=== PATIENT | female | born 1950 | race Caucasian/White ===

== ENCOUNTER 2017-09-27 12:05 | Observation (INO) ==
[2017-09-27] MEDS ORDERED: Aspirin 81 MG TAB.CHEW PO ONE (12:27)
--- NOTE | 2017-09-27 12:31 | Emergency Department Note ---
Disposition Clinical Impression: Chest pain Qualifiers: Chest pain type: unspecified Qualified Code(s): R07.9 - Chest pain, unspecified Disposition: Admitted As Inpatient Condition: Fair Referrals: Haeseb Franco MD [Primary Care Provider] - Forms: ED Satisfaction Letter Time of Disposition: 14:34 Chest Pain HPI - General Chief Complaint: ED Chest Pain Stated Complaint: Chest Pressure Time Seen by Provider: 09/27/17 12:21 Source: patient Mode of arrival: ambulatory Limitations: no limitations Vital Signs Reviewed: Yes Nursing Notes Reviewed: Yes - History of Present Illness HPI Narrative: 67-year-old female who woke up this morning with chest pain across her chest lasted for about 15-20 minutes then resolved. Patient has no previous history of heart disease. Says no recent cardiac workup. Include family history and high cholesterol. 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 Onset: during rest Pain Location: substernal, left chest Severity: mild Severity scale (1-10): 2 Quality: tightness, aching Pain Radiation: none Improves with: nothing Worsens with: nothing Context: recent illness Associated symptoms: Reports: nausea Treatments prior to arrival chest pain: none - Related Data Home Medications Medication Instructions Recorded Confirmed Diclofenac Sodium [Voltaren] 1 appl TP QID PRN 09/28/16 09/28/16 Dicyclomine HCl [Bentyl] 20 mg PO DAILY PRN 09/28/16 09/28/16 Pantoprazole Sodium [Protonix] 20 mg PO DAILY 09/28/16 09/28/16 clonazePAM [Klonopin] 0.5 mg PO HS PRN 09/28/16 09/28/16 Allergies Allergy/AdvReac Type Severity Reaction Status Date / Time acetaminophen [From Percocet] Allergy Vomiting Verified 09/27/17 12:10 azithromycin Allergy Rash Verified 09/27/17 12:10 [From Zithromax Z-Chilo] cefdinir [From Omnicef] Allergy Hives Verified 09/27/17 12:10 hydrocodone [From Vicodin] Allergy Vomiting Verified 09/27/17 12:10 Hydromorphone [From Dilaudid] Allergy Vomiting Verified 09/27/17 12:10 Oxycodone [From Percocet] Allergy Vomiting Verified 09/27/17 12:10 promethazine [From Phenergan] Allergy Vomiting Verified 09/27/17 12:10 Owjrdul-Wku-Znk Reductase Allergy Muscle Pain Verified 09/27/17 12:10 Inhibitor [Statins] Sulfa (Sulfonamide Allergy Hives Verified 09/27/17 12:10 Antibiotics) All systems ED: reviewed and negative except as stated. Constitutional: Denies: fever, chills, weakness, weight change Eyes: Denies: eye pain, eye discharge, vision change ENT ED: Denies: ear pain, throat pain, dental pain, hearing loss, epistaxis, congestion, dysphagia Cardiovascular: Reports: chest pain. Denies: palpitations, dyspnea on exertion , edema, syncope Respiratory: Denies: cough, dyspnea, wheezes, hemoptysis, stridor Gastrointestinal: Denies: abdominal pain, nausea, vomiting, diarrhea, constipation, hematemesis, melena, hematochezia Genitourinary: Denies: dysuria, frequency, hematuria, discharge Musculoskeletal: Denies: back pain, neck pain, arthralgia, myalgia Integumentary: Denies: rash, abrasion, lesions Neurological: Denies: headache, weakness, numbness, paresthesias, confusion, abnormal gait, vertigo Psychiatric: Denies: anxiety, depression, suicidal thoughts, homicidal thoughts , auditory hallucinations, visual hallucinations Endocrine: Denies: fatigue Hematological/Lymphatic: Denies: easy bleeding, easy bruising Allergic/Immunologic: Denies: facial swelling, urticaria Chest Pain PMH - Past Medical History Medical history: Reports: GERD, hyperlipidemia, other Surgical history: Reports: orthopedic, other Psychiatric history: Reports: no psych history 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 - Social History Smoking Status: Never smoker Alcohol use: Reports: none Drug use: Reports: none Physical Exam - General Limitations: no limitations General appearance: alert, in no apparent distress - Head Head exam: atraumatic, normocephalic, normal inspection - Eye Eye exam: Present: normal appearance, PERRL, EOMI - ENT ENT exam: normal exam, normal oropharynx, mucous membranes moist - Neck Neck exam: Present: normal inspection, full ROM, trachea midline - Chest Chest inspection: Present: normal inspection, symmetric chest wall rise - Respiratory Respiratory exam: Present: normal lung sounds bilaterally - Cardiovascular Cardiovascular exam: Present: regular rate - Abdominal Exam Abdominal exam: Present: soft, Non-Tender. Absent: tenderness, distention, guarding, rebound, rigidity - Extremities Exam Extremities exam: Present: normal inspection, full ROM. Absent: tenderness, pedal edema - Expanded Lower Extremity Exam Neurovascular/Tendon exam: Absent: motor deficit, sensory deficit, tendon deficit Gait: observed and normal - Back Exam Back exam: Present: normal inspection, full ROM. Absent: tenderness - Neurological Exam Neurological exam: Present: alert, oriented X3 - Psychiatric Psychiatric exam: Present: normal affect, normal mood - Skin Skin exam: Present: warm, dry, intact, normal color Course - Reevaluation(s) Reevaluation #1: 67-year-old with multiple risk factors come in complaining of chest pain. Workup here is negative patient's had no recent workup will admit. Time: 14:33 - Consultations Consultation #1: Discussed with Dr. Juárez, it. Time: 14:34 Vital Signs Temperature 97.4 F L 09/27/17 12:06 Pulse Rate 69 09/27/17 12:06 Respiratory Rate 16 09/27/17 12:06 Blood Pressure 170/85 09/27/17 12:06 O2 Sat by Pulse Oximetry 99 09/27/17 12:06 Temperature 97.4 F L 09/27/17 12:06 Pulse Rate 56 09/27/17 13:50 Respiratory Rate 18 09/27/17 13:50 Blood Pressure 163/80 09/27/17 13:50 O2 Sat by Pulse Oximetry 96 09/27/17 13:50 Oxygen Delivery Oxygen Delivery Room Air Chest Pain - Lab Data Result diagrams: 09/27/17 12:37 09/27/17 12:37 Lab Results 09/27/17 09/27/17 09/27/17 Range/Units 12:37 12:37 12:37 WBC 6.8 (4.3-11.1) K/mcL RBC 4.92 (3.82-4.97) M/mcL Hgb 13.9 (11.5-15.4) g/dL Hct 43.1 (35.3-44.9) % MCV 87.6 (83.0-100.0) fL MCH 28.3 (28.0-33.3) pg MCHC 32.3 (31.6-35.5) g/dL RDW 13.5 (11.5-14.5) % Plt Count 325 (140-400) K/mcL MPV 10.9 (9.4-12.4) fL Immature Gran % 0.9 (0-4) % Seg Neutrophils % 54.4 % Lymphocytes % 29.4 % Monocytes % 12.6 % Eosinophils % 1.2 % Basophils % 1.5 % Neutrophils # 3.7 (1.6-8.9) K/mcL Lymphocytes # 2.0 (0.6-4.6) K/mcL Monocytes # 0.9 (0.0-1.3) K/mcL Eosinophils # 0.1 (0.0-0.6) K/mcL Basophils # 0.1 (0.0-0.2) K/mcL PT 11.2 (9.4-12.1) Seconds INR 1.0 APTT 28.8 (26.0-36.0) Seconds Sodium 141 (136-145) mEq/L Potassium 4.2 (3.5-4.5) mEq/L Chloride 105 (98-109) mEq/L Carbon Dioxide 27 (19-29) mEq/L BUN 15 (7-20) mg/dL Creatinine 0.97 (0.57-1.11) mg/dL Est GFR ( Amer) > 60 (> 60) Est GFR (Non-Af Amer) 57 L (> 60) BUN/Creatinine Ratio 15 (6-26) Glucose 94 (70-99) mg/dL Calculated Osmolality 293 (280-300) Calcium 10.2 (8.6-10.8) mg/dL Troponin I (0-0.03) ng/mL 09/27/17 Range/Units 12:37 WBC (4.3-11.1) K/mcL RBC (3.82-4.97) M/mcL Hgb (11.5-15.4) g/dL Hct (35.3-44.9) % MCV (83.0-100.0) fL MCH (28.0-33.3) pg MCHC (31.6-35.5) g/dL RDW (11.5-14.5) % Plt Count (140-400) K/mcL MPV (9.4-12.4) fL Immature Gran % (0-4) % Seg Neutrophils % % Lymphocytes % % Monocytes % % Eosinophils % % Basophils % % Neutrophils # (1.6-8.9) K/mcL Lymphocytes # (0.6-4.6) K/mcL Monocytes # (0.0-1.3) K/mcL Eosinophils # (0.0-0.6) K/mcL Basophils # (0.0-0.2) K/mcL PT (9.4-12.1) Seconds INR APTT (26.0-36.0) Seconds Sodium (136-145) mEq/L Potassium (3.5-4.5) mEq/L Chloride (98-109) mEq/L Carbon Dioxide (19-29) mEq/L BUN (7-20) mg/dL Creatinine (0.57-1.11) mg/dL Est GFR ( Amer) (> 60) Est GFR (Non-Af Amer) (> 60) BUN/Creatinine Ratio (6-26) Glucose (70-99) mg/dL Calculated Osmolality (280-300) Calcium (8.6-10.8) mg/dL Troponin I 0.00 (0-0.03) ng/mL - EKG Data EKG attestation: Yes I reviewed and interpreted this EKG. EKG shows normal: sinus rhythm Rate: normal Rhythm: NSR [place]/QRS: left axis deviation Interpretation: no acute changes Heart Score - Score History: Moderately Suspicious EKG: Non Specific repolarisation Disturbance Age: Greater than 65 Risk Factors: 1-2 risk factors Troponin: Less than normal limit HEART Score Total: 5
[2017-09-27 12:50] LABS: Basophils # 0.1 K/mcL (0.0-0.2); Basophils % 1.5 %; Eosinophils # 0.1 K/mcL (0.0-0.6); Eosinophils % 1.2 %; Hematocrit 43.1 % (35.3-44.9); Hemoglobin 13.9 g/dL (11.5-15.4); Immature Granulocytes % 0.9 % (0-4); Lymphocytes % 29.4 %; Mean Corpuscular HGB Conc 32.3 g/dL (31.6-35.5); Mean Corpuscular Hemoglobin 28.3 pg (28.0-33.3); Mean Corpuscular Volume 87.6 fL (83.0-100.0); Mean Platelet Volume 10.9 fL (9.4-12.4); Monocytes # 0.9 K/mcL (0.0-1.3); Monocytes % 12.6 %; Neutrophils # 3.7 K/mcL (1.6-8.9); Platelet Count 325 K/mcL (140-400); Red Blood Count 4.92 M/mcL (3.82-4.97); Red Cell Distribution Width 13.5 % (11.5-14.5); Segmented Neutrophils % 54.4 %
[2017-09-27 12:59] LABS: Prothrombin Time 11.2 Seconds (9.4-12.1)
[2017-09-27 13:01] LABS: BUN/Creatinine Ratio 15 (6-26); Blood Urea Nitrogen 15 mg/dL (7-20); Calcium 10.2 mg/dL (8.6-10.8); Carbon Dioxide 27 mEq/L (19-29); Chloride 105 mEq/L (98-109); Glucose 94 mg/dL (70-99); Osmolality,Calculated 293 (280-300); Potassium 4.2 mEq/L (3.5-4.5); Sodium 141 mEq/L (136-145); eGFR For African Americans > 60 (> 60); eGFR For Non-African Americans 57 (> 60)
[2017-09-27 13:02] LABS: Activated Partial Thrombo Time 28.8 Seconds (26.0-36.0)
[2017-09-27] MEDS ORDERED: *HR* Enoxaparin 80 MG/0.8 ML SYRINGE SQ STA (14:55)
[2017-09-27] MEDS ORDERED: clonazePAM 0.5 MG TABLET PO PRN (16:17)
--- NOTE | 2017-09-27 16:21 | Event Note ---
Date of Encounter: 09/27/17 Time of Encounter: 16:19 10 point review of systems is negative except for HPI
--- NOTE | 2017-09-27 16:28 | Internal Med History&Physical ---
Date of Encounter: 09/27/17 Time of Encounter: 16:22 Assessment and Plan (1) Unstable angina Current visit: Yes Status: Acute Patient presents with unstable angina. Initial troponin normal. EKG showing subtlle ST-T wave changes changes in V1 and V2. I will start the patient on FULL DOSE LOVENOX. She denies any active chest pain. Rules of the patient and aspirin functional blockers for hypertension no room for beta blockers. Lisinopril for hypertension. Internal Medicine - H&P: HPI Chief complaint: CHEST PAIN History of present illness: Ms. Alcala is a 67 year old female patient presents to the emergency room today with the main complaint of chest pain. Patient was awaken from sleep at 6 AM with retrosternal chest pain radiating to the right arm lasting for approximately 2 minutes. Pain was not related to exertion. There was no associated shortness of breath sweating nausea vomiting. Pain is not regarded again. She denies any chest pain during my interview. No prior similar problems. Has not had any prior cardiac workup. Past Med Surg Social Fam HX - Past Medical History Medical history: GERD, hyperlipidemia, other Psychiatric history: no psych history - Past Surgical History Surgical History: cataract - Social History Smoking Status: Never smoker Smokeless Tobacco Status: No Alcohol use: none Drug use: none - Family History Father Living Status: Cause of : ID Hx Family Cardiac Disorders: Yes (ID) Brother Living Status: Still Living Hx Family Cardiac Disorders: Yes (AAA) Internal Medicine - H&P: Meds Dicyclomine HCl [Bentyl] 20 mg PO DAILY PRN 09/28/16 [History] Pantoprazole Sodium [Protonix] 20 mg PO DAILY 09/28/16 [History] clonazePAM [Klonopin] 0.5 mg PO HS PRN 09/28/16 [History] Aspirin Enteric Coated [Aspirin EC] 81 mg PO DAILY 09/27/17 [History] Cholecalciferol (Vitamin D3) [Vitamin D3] 5,000 unit PO DAILY 09/27/17 [History] Fenofibrate Nanocrystallized [Triglide] 160 mg PO DAILY 09/27/17 [History] 3 Allergy/AdvReac Type Severity Reaction Status Date / Time acetaminophen [From Percocet] Allergy Vomiting Verified 09/27/17 12:10 azithromycin Allergy Rash Verified 09/27/17 12:10 [From Zithromax Z-Chilo] cefdinir [From Omnicef] Allergy Hives Verified 09/27/17 12:10 hydrocodone [From Vicodin] Allergy Vomiting Verified 09/27/17 12:10 Hydromorphone [From Dilaudid] Allergy Vomiting Verified 09/27/17 12:10 Oxycodone [From Percocet] Allergy Vomiting Verified 09/27/17 12:10 promethazine [From Phenergan] Allergy Vomiting Verified 09/27/17 12:10 Upzpvvr-Kpp-Eqy Reductase Allergy Muscle Pain Verified 09/27/17 12:10 Inhibitor [Statins] Sulfa (Sulfonamide Allergy Hives Verified 09/27/17 12:10 Antibiotics) All Systems PM: A 10-system review of systems was performed and is negative for pertinent findings except as documented above in the HPI. Review of systems: 10 point review of systems is negative except for HPI - Constitutional Vitals: Temp Pulse Resp BP Pulse Ox 97.8 F 73 17 141/76 98 09/27/17 15:56 09/27/17 15:56 09/27/17 15:56 09/27/17 15:56 09/27/17 15:56 Exam: Gen.: patient is alert oriented times 3 cardiac: normal S1 S2 no additional sounds or murmurs chest: no active wheezing or bronchial breathing abdomen soft nontender nondistended normal bowel sounds lower extremity no swelling. Neuro: no new focal deficits Internal Med - H&P Results - Labs CBC & Chem 7: 09/27/17 12:37 09/27/17 12:37
[2017-09-27] MEDS: amLODIPine 5 MG TABLET PO SCH (17:35)
--- NOTE | 2017-09-27 17:40 | Electrocardiograph Report ---
[facility] Test Date: 2017-09-27 Pat Name: Georgia Alcala Department: 103 Room: 3B34 Gender: F Director Of Event Management: : 1950 Requested By: Berenice See Order Number: [id number] Reading MD: Eagle Coburn MD Measurements Intervals [place] Rate: 63 P: 45 [place]: 162 QRS: -21 QRSD: 80 T: 22 QT: 385 QTc: 392 Interpretive Statements SINUS RHYTHM BORDERLINE LEFT AXIS DEVIATION [QRS AXIS < -20] Electronically Signed On 09-27-2017 17:39:33 EDT by Eagle Coburn MD
[2017-09-27] MEDS: Acetaminophen 325 MG TABLET PO PRN (21:26)
[2017-09-28] MEDS: *HR* Enoxaparin 30 MG/0.3 ML SYRINGE SQ SCH ×2 (02:50→02:53)
[2017-09-28] MEDS: Acetaminophen 325 MG TABLET PO PRN ×2 (04:07→10:34)
[2017-09-28 04:50] LABS: Basophils # 0.1 K/mcL (0.0-0.2); Basophils % 1.3 %; Eosinophils # 0.1 K/mcL (0.0-0.6); Eosinophils % 1.6 %; Hematocrit 40.6 % (35.3-44.9); Hemoglobin 13.3 g/dL (11.5-15.4); Immature Granulocytes % 0.8 % (0-4); Lymphocytes # 2.5 K/mcL (0.6-4.6); Lymphocytes % 41.1 %; Mean Corpuscular HGB Conc 32.8 g/dL (31.6-35.5); Mean Corpuscular Hemoglobin 28.7 pg (28.0-33.3); Mean Corpuscular Volume 87.5 fL (83.0-100.0); Mean Platelet Volume 11.2 fL (9.4-12.4); Monocytes # 0.8 K/mcL (0.0-1.3); Monocytes % 12.4 %; Neutrophils # 2.6 K/mcL (1.6-8.9); Platelet Count 288 K/mcL (140-400); Red Blood Count 4.64 M/mcL (3.82-4.97); Red Cell Distribution Width 13.8 % (11.5-14.5); Segmented Neutrophils % 42.8 %
[2017-09-28 05:19] LABS: BUN/Creatinine Ratio 15 (6-26); Blood Urea Nitrogen 16 mg/dL (7-20); Calcium 10.1 mg/dL (8.6-10.8); Carbon Dioxide 27 mEq/L (19-29); Chloride 104 mEq/L (98-109); Glucose 92 mg/dL (70-99); Magnesium 2.3 mg/dL (1.6-2.6); Osmolality,Calculated 295 (280-300); Potassium 4.2 mEq/L (3.5-4.5); Sodium 142 mEq/L (136-145); eGFR For African Americans > 60 (> 60); eGFR For Non-African Americans 51 (> 60)
[2017-09-28] MEDS: amLODIPine 5 MG TABLET PO SCH (08:07)
[2017-09-28] MEDS ORDERED: Fenofibrate 54 MG TABLET PO SCH (09:00)
[2017-09-28] MEDS ORDERED: Aspirin Enteric Coated 81 MG Tablet PO SCH (09:00)
--- NOTE | 2017-09-28 13:59 | Cardiology Consult Note ---
Date of Encounter: 09/28/17 Time of Encounter: 12:00 Assessment and Plan (1) Chest pain Current Visit: Yes Status: Acute Per cardiology: -Reported one episode of midsternal chest pain that woke her up from sleeping. States radiated to right shoulder. -Denies exertional symtpoms. Reports is able to go hiking without symptoms. -Reports worsening fatigue over the past couple of weeks. -Troponins negative x2. -No acute ischemic ECG changes. -Stress echo 12/2015 negative for ischemia. -TTE 01/2017 with LVEF 60%, mild diastolic dysufnction, mild MR, mild TR, evidence of PFO noted, all rodrigues with normal motion. -Denies current chest pain. -Reports hyperlipidemia, however intolerant to statins. On tricor. -Chest pain atypical, however having increased fatigue. -Can consider inpatient versus outpatient stress test. Qualifiers: Chest pain type: unspecified Qualified Code(s): R07.9 - Chest pain, unspecified Discussion w patient/family: The assessment and plan as outlined above was discussed with the patient and/or family members who expressed understanding and agreement. All questions were answered. Thank you for involving us in the care of your patient. Please call with any questions. Discussed and reviewed with . History of Present Illness Consult date: 09/27/17 Requesting physician: Edwin Juárez Consult reason: unstable angina Chief complaint: chest pain History of present illness: Ms. Alcala is a 67 year old female with a relevant past medical history of hyperlipidemia and PFO. Patient reports her biological father had reported NH, but she is unaware of his age at time of NH. Patient reports she was sleeping when she was woken up by midsternal chest pain that radiated to right shoulder. Patient reports pain lasted about 20 minutes and resolved spontaneously. Patient denies aggravating or alleviating factors. Patient denies shortness of breath. Patient reports increased fatigue over the last couple of weeks. Patient reports that she goes hiking without symptoms. Patient denies exertional symptoms. Past Med Surg Social Fam HX - Past Medical History Attestation: Yes The following information was validated with the patient. Source: patient, old records reviewed, obtained from family Medical history: GERD, hyperlipidemia, other Psychiatric history: no psych history - Past Surgical History Surgical History: cataract - Social History Smoking Status: Never smoker Smokeless Tobacco Status: No Alcohol use: none Drug use: none - Family History Father Living Status: Cause of : NH Hx Family Cardiac Disorders: Yes (NH) Brother Living Status: Still Living Hx Family Cardiac Disorders: Yes (AAA) Medications and Allergies Dicyclomine HCl [Bentyl] 20 mg PO DAILY PRN 09/28/16 [History] Pantoprazole Sodium [Protonix] 20 mg PO DAILY 09/28/16 [History] clonazePAM [Klonopin] 0.5 mg PO HS PRN 09/28/16 [History] Aspirin Enteric Coated [Aspirin EC] 81 mg PO DAILY 09/27/17 [History] Cholecalciferol (Vitamin D3) [Vitamin D3] 5,000 unit PO DAILY 09/27/17 [History] Fenofibrate Nanocrystallized [Triglide] 160 mg PO DAILY 09/27/17 [History] 3 Allergy/AdvReac Type Severity Reaction Status Date / Time acetaminophen [From Percocet] Allergy Vomiting Verified 09/27/17 12:10 azithromycin Allergy Rash Verified 09/27/17 12:10 [From Zithromax Z-Chilo] cefdinir [From Omnicef] Allergy Hives Verified 09/27/17 12:10 hydrocodone [From Vicodin] Allergy Vomiting Verified 09/27/17 12:10 Hydromorphone [From Dilaudid] Allergy Vomiting Verified 09/27/17 12:10 Oxycodone [From Percocet] Allergy Vomiting Verified 09/27/17 12:10 promethazine [From Phenergan] Allergy Vomiting Verified 09/27/17 12:10 Nuabged-Byi-Pgv Reductase Allergy Muscle Pain Verified 09/27/17 12:10 Inhibitor [Statins] Sulfa (Sulfonamide Allergy Hives Verified 09/27/17 12:10 Antibiotics) All Systems Review: A 10-system review of systems was performed and is negative for pertinent findings except as documented above in the HPI. - Cardiovascular Cardiovascular: as per HPI, chest pain at rest Physical Examination Vital Signs, Last 4 Hours Temp Pulse Resp BP Pulse Ox 09/28/17 10:48 97.9 F 60 18 121/59 97 General: Conversant, No Apparent Distress HEENT: Atraumatic, Normocephaly, Mucus Membranes Moist Neck: No JVD, Normal carotid pulses Cardiac: Reg Rate and Rhythm, Normal S1 and S2, No Murmur Lungs: Normal Breath Sounds, No Wheeze, Rales, Rhonchi Neuro: Alert and responsive, No focal deficits noted Abdomen: Soft, Non-Tender Skin: No rashes noted on visualized skin Musculoskeletal: No Chest Wall Tenderness Extremities: No Clubbing, No Cyanosis, No Edema, Normal Pulses Results 09/28/17 03:31 09/28/17 03:31 Lab Results Active Medications Acetaminophen (Tylenol) 650 mg PO Q6HR PRN PRN Reason: headache Stop: 03/29/18 20:51 Last Admin: 09/28/17 10:34 Dose: 650 mg Amlodipine Besylate (Norvasc) 5 mg PO DAILY [facility] PRN Reason: Protocol Stop: 03/29/18 16:31 Last Admin: 09/28/17 08:07 Dose: 5 mg Aspirin (Aspirin Ec) 81 mg PO DAILY [facility] Stop: 03/30/18 09:01 Last Admin: 09/28/17 08:07 Dose: 81 mg Clonazepam (Klonopin) 0.5 mg PO PRN PRN Reason: Sleep Stop: 03/29/18 16:18 Enoxaparin Sodium (Lovenox) 60 mg SQ Q12HCO [facility] PRN Reason: Protocol Stop: 03/30/18 03:01 Last Admin: 09/28/17 02:53 Dose: Not Given Fenofibrate (Tricor) 162 mg PO DAILY [facility] Stop: 03/30/18 09:01 Last Admin: 09/28/17 08:07 Dose: 162 mg Omeprazole (Prilosec) 20 mg PO DAILY [facility] Stop: 03/30/18 09:01 Last Admin: 09/28/17 08:07 Dose: 20 mg Laboratory Tests 09/27/17 09/27/17 09/28/17 12:37 17:57 03:31 Hgb 13.3 Creatinine Troponin I 0.00 0.00 09/28/17 03:31 Hgb Creatinine 1.07 Troponin I - Imaging and Cardiology Chest Xray: report reviewed Stress Test: report reviewed Echo: report reviewed - EKG Interpretation EKG results cardiology: personally reviewed (ECG with Sr, HR 68.), other ( Telemetry reviewed with average HR previous 12 hours noted to be 63, sinus rhythm. PVCs and PACs noted.) Consult Discharge Plan - Plan Referrals: Haseeb Franco MD [Primary Care Provider] -
[2017-09-28 14:46] VITALS: BP 134/94
--- NOTE | 2017-09-28 17:29 | Discharge Summary ---
Date of Encounter: 09/28/17 Time of Encounter: 17:27 - Discharge Diagnosis (1) Chest pain Priority: Primary Status: Acute Qualifiers: Chest pain type: unspecified Qualified Code(s): R07.9 - Chest pain, unspecified (2) Insomnia disorder Priority: Secondary Status: Acute Qualifiers: Insomnia type: adjustment Qualified Code(s): F51.02 - Adjustment insomnia - Discharge Medications Prescriptions: amLODIPine [Norvasc] 5 mg PO DAILY #30 tablet Mirtazapine 7.5 mg PO DAILY #30 tablet Home Medications: Dicyclomine HCl [Bentyl] 20 mg PO DAILY PRN 09/28/16 [History] Pantoprazole Sodium [Protonix] 20 mg PO DAILY 09/28/16 [History] Aspirin Enteric Coated [Aspirin EC] 81 mg PO DAILY 09/27/17 [History] Cholecalciferol (Vitamin D3) [Vitamin D3] 5,000 unit PO DAILY 09/27/17 [History] Fenofibrate Nanocrystallized [Triglide] 160 mg PO DAILY 09/27/17 [History] Mirtazapine 7.5 mg PO DAILY #30 tablet 09/28/17 [Rx] amLODIPine [Norvasc] 5 mg PO DAILY #30 tablet 09/28/17 [Rx] Allergies/Adverse Reactions: 3 Allergy/AdvReac Type Severity Reaction Status Date / Time acetaminophen [From Percocet] Allergy Vomiting Verified 09/27/17 12:10 azithromycin Allergy Rash Verified 09/27/17 12:10 [From Zithromax Z-Chilo] cefdinir [From Omnicef] Allergy Hives Verified 09/27/17 12:10 hydrocodone [From Vicodin] Allergy Vomiting Verified 09/27/17 12:10 Hydromorphone [From Dilaudid] Allergy Vomiting Verified 09/27/17 12:10 Oxycodone [From Percocet] Allergy Vomiting Verified 09/27/17 12:10 promethazine [From Phenergan] Allergy Vomiting Verified 09/27/17 12:10 Amphgtp-Hwt-Qdk Reductase Allergy Muscle Pain Verified 09/27/17 12:10 Inhibitor [Statins] Sulfa (Sulfonamide Allergy Hives Verified 09/27/17 12:10 Antibiotics) Date of admission: 09/27/17 15:01 Primary care physician: Haseeb Franco MD Consults: 09/27/17 16:15 Consult to Cardiology [CONS] Routine Comment: Consulting Provider: Flavio El Reason for Consult: unstable angina Call Completed: No Discharging clinician: Maykel Reza Anticipated date of discharge: 09/28/17 - Patient Status Disposition: Home, Self-Care Condition: Fair Functional capacity at discharge: independent ambulation Overall status at discharge: patient is back to baseline - Discharge Instructions Instructions: Chest Pain (DC) Follow Up With: Haseeb Franco MD [Primary Care Provider] - - Diet and Activity Activity: resume usual activities as tolerated Diet: low fat, low cholesterol Interval History: Ms. Alcala is a 67 year old female with a relevant past medical history of hyperlipidemia and PFO. Patient reportsed that her biological father had WI, but she is unaware of his age at time of WI. Patient reported she was sleeping when she was woken up by midsternal chest pain that radiated to right shoulder. Patient reports pain lasted about 20 minutes and resolved spontaneously. Patient denies aggravating or alleviating factors. Patient denies shortness of breath. Patient reports increased fatigue over the last couple of weeks. Patient reports that she goes hiking without symptoms. Patient denies dyspnea on exertion. Patient stated that she is very anxious lately, she worry a lot about different things. Patient has trouble sleeping occasionally. Patient taking clonazepam sometimes to help her sleep. Patient was admitted to the hospital cardiac enzymes were negative, no acute EKG changes,Stress echo 12/2015 negative for ischemia. TTE 01/2017 with LVEF 60%, mild diastolic dysufnction, mild MR, mild TR, evidence of PFO noted, all rodrigues with normal motion. -Reports hyperlipidemia, however intolerant to statins. On tricor. Patient denies any chest pain now. Patient seen by cardiology team and evaluated. Also had a stress test to be done inpatient or outpatient. Patient wanted with as an outpatient. Patient understands risk and benefit. Patient had amlodipine to help for possible vasospastic angina, with her history of anxiety as well as trouble sleeping patient was placed on a small dose of SSRI, counseling for benzodiazepine. Risk and benefit discussed with patient and family. Hospital course: Ms. Alcala is a 67 year old female - Time Spent with Patient Total time spent providing and/or coordinating discharge services: Less than 30 minutes - Constitutional Vitals: Temp Pulse Resp BP Pulse Ox 98.1 F 62 18 134/94 97 09/28/17 14:43 09/28/17 14:43 09/28/17 14:43 09/28/17 14:43 09/28/17 15:00
--- NOTE | 2017-09-30 11:26 | Electrocardiograph Report ---
[place] [id number] Test Date: 2017-09-27 Pat Name: Georgia Alcala Department: 103 Room: 3B Gender: F Manager Lan: MSC : 1950 Requested By: Ottoniel Dunbar Order Number: [id number] Reading MD: Bernice Molina Measurements Intervals [place] Rate: 62 P: 40 [place]: 159 QRS: -18 QRSD: 86 T: 1 QT: 422 QTc: 427 Interpretive Statements SINUS RHYTHM Electronically Signed On 09-30-2017 11:24:56 EDT by Bernice Molina
[2017-10-01 11:57] LABS: CK-MB (CK isoenzymes) 0 % (0-4); CK-MM (CK-isoenzymes) 100 % (96-100)
[2017-10-02 08:21] LABS: CK Total (Ck Isoenzymes) 61 U/L (20-180); CK-BB (CK isoenzymes) 0 % (0-0)
== END 2017-09-28 18:14 | disposition home or self-care (01) ==
LOC: EMEROO 12:05 → 3BNU 12:05
PROVIDERS: ADMIT Hospitalist; ATTEND Registered Nurse

== ENCOUNTER 2019-07-14 07:45 | Observation (INO) ==
[2019-07-14 08:28] LABS: Basophils # 0.1 K/mcL (0.0-0.2); Basophils % 0.4 %; Eosinophils # 0.1 K/mcL (0.0-0.6); Eosinophils % 0.6 %; Hematocrit 46.9 % (35.3-44.9); Hemoglobin 14.9 g/dL (11.5-15.4); Lymphocytes # 0.9 K/mcL (0.6-4.6); Lymphocytes % 5.4 %; Mean Corpuscular HGB Conc 31.8 g/dL (31.6-35.5); Mean Corpuscular Hemoglobin 28.7 pg (28.0-33.3); Mean Corpuscular Volume 90.4 fL (83.0-100.0); Mean Platelet Volume 10.7 fL (9.4-12.4); Monocytes # 0.8 K/mcL (0.0-1.3); Monocytes % 5.1 %; Neutrophils # 14.3 K/mcL (1.6-8.9); Platelet Count 281 K/mcL (140-400); Red Blood Count 5.19 M/mcL (3.82-4.97); Red Cell Distribution Width 13.8 % (11.5-14.5); Segmented Neutrophils % 87.5 %; White Blood Count 16.4 K/mcL (4.3-11.1)
[2019-07-14 08:46] LABS: BUN/Creatinine Ratio 20 (6-26); Blood Urea Nitrogen 19 mg/dL (8-23); Calcium 9.5 mg/dL (8.6-10.3); Carbon Dioxide 25 mEq/L (23-29); Chloride 103 mEq/L (98-107); Glucose 127 mg/dL (70-105); Osmolality,Calculated 292 (280-300); Potassium 4.3 mEq/L (3.5-5.1); Sodium 139 mEq/L (136-145); eGFR For African Americans > 60 (> 60); eGFR For Non-African Americans 57 (> 60)
[2019-07-14 09:29] LABS: Bilirubin,Urine Negative (Negative); Blood,Urine Small (Negative); Clarity,Urine Clear (Clear); Color,Urine Yellow (Yellow); Glucose,Urine (UA) Normal (Normal); Ketones,Urine Negative (Negative); Leukocyte Esterase,Urine Negative (Negative); Nitrite,Urine Negative (Negative); PH,Urine 5.5 pH Units (5.0-8.0); Protein,Urine Negative (Neg-Trace); Specific Gravity,Urine 1.026 (1.010-1.025); Urobilinogen,Urine Normal (Normal)
[2019-07-14 09:32] LABS: Bacteria,Urine None Seen per hpf (None-Few); Hyaline Casts,Urine None Seen per lpf (None-Few); Squamous Epithelial Cell,Urine Many per lpf (None-Few); WBC,Urine 0-3 per hpf (0-3)
[2019-07-14] MEDS ORDERED: Aspirin 325 MG TABLET PO ONE (10:18)
[2019-07-14 10:32] LABS: Alanine Aminotransferase 41 Units/L (7-52); Albumin 4.7 g/dL (3.5-5.7); Alkaline Phosphatase 70 Units/L (34-104); Aspartate Amino Transferase 26 Units/L (13-39); Bilirubin,Direct 0.1 mg/dL (0.0-0.2); Bilirubin,Indirect 0.3 mg/dL (0.0-1.2); Bilirubin,Total 0.4 mg/dL (0.3-1.0); Globulin 2.4 g/dL (2.4-3.5); Total Protein 7.1 g/dL (6.4-8.9)
[2019-07-14 10:33] LABS: Troponin I < 0.03 ng/mL (< 0.04)
--- NOTE | 2019-07-14 10:49 | Emergency Department Note ---
Disposition Clinical Impression: Chest pain Qualifiers: Chest pain type: precordial pain Qualified Code(s): R07.2 - Precordial pain Disposition: Admitted As Inpatient Condition: Good Referrals: Haseeb Franco MD [Primary Care Provider] - Forms: ED Satisfaction Letter, Work/School Release Time of Disposition: 12:06 Chest Pain HPI - General Chief Complaint: ED Abdominal Pain Stated Complaint: n/v/UQP Time Seen by Provider: 07/14/19 09:22 Source: patient Limitations: no limitations - History of Present Illness Pt complaint: chest pain Onset (ago): hour(s) Time: 03:00 Duration: intermittent, now resolved Onset: during rest, awoke with symptoms Pain Location: substernal Severity: moderate, severe, now resolved Severity scale (1-10): 6 Quality: tightness, aching, sharp Pain Radiation: none Improves with: nothing Worsens with: nothing Context: other (None) Associated symptoms: Reports: nausea. Denies: vomiting, diaphoresis, dyspnea, sense of impending doom, syncope, palpitations, fever, cough, leg swelling Treatments prior to arrival chest pain: none - Related Data On Oral Contraceptives: No Home Medications Medication Instructions Recorded Confirmed Dicyclomine HCl [Bentyl] 20 mg PO DAILY PRN 09/28/16 07/14/19 Pantoprazole Sodium [Protonix] 20 mg PO DAILY 09/28/16 07/14/19 Aspirin Enteric Coated [Aspirin EC] 81 mg PO DAILY 09/27/17 07/14/19 Cholecalciferol (Vitamin D3) 5,000 unit PO DAILY 09/27/17 07/14/19 [Vitamin D3] Famotidine [Pepcid] 40 mg PO DAILY 03/16/19 07/14/19 Fenofibrate Nanocrystallized 160 mg PO DAILY 03/16/19 07/14/19 [Fenofibrate] Rosuvastatin Calcium [Crestor] 5 mg PO DAILY 03/16/19 07/14/19 Previous Rx's Medication Instructions Recorded Ondansetron ODT [Zofran ODT] 4 mg SL Q6HR PRN #12 tab.rapdis 03/16/19 Allergies Allergy/AdvReac Type Severity Reaction Status Date / Time acetaminophen [From Percocet] Allergy Vomiting Verified 09/27/17 12:10 azithromycin Allergy Rash Verified 09/27/17 12:10 [From Zithromax Z-Chilo] cefdinir [From Omnicef] Allergy Hives Verified 09/27/17 12:10 hydrocodone [From Vicodin] Allergy Vomiting Verified 09/27/17 12:10 hydromorphone [From Dilaudid] Allergy Vomiting Verified 09/27/17 12:10 oxycodone [From Percocet] Allergy Vomiting Verified 09/27/17 12:10 promethazine [From Phenergan] Allergy Vomiting Verified 09/27/17 12:10 Dhzirol-Pzq-Rhf Reductase Allergy Muscle Pain Verified 09/27/17 12:10 Inhibitor [Statins] Sulfa (Sulfonamide Allergy Hives Verified 09/27/17 12:10 Antibiotics) All systems ED: reviewed and negative except as stated. Review of Systems: As Per HPI Constitutional: Denies: fever, chills, weakness Eyes: Denies: vision change Cardiovascular: Reports: as per HPI, chest pain. Denies: palpitations, dyspnea on exertion, orthopnea, edema, syncope Respiratory: Denies: cough, dyspnea, wheezes Gastrointestinal: Reports: nausea. 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 There are no limitations to the physical exam. Head: Normocephalic, atraumatic, normal inspection Eye: Normal appearance, PERRL, sclerae are anicteric. Conjunctiva noninjected. There is no periorbital swelling. ENT: Mucous membranes are moist Neck: Supple, nontender. Trachea is midline. No palpable lymphadenopathy. No meningeal signs. Chest: Normal inspection, symmetric chest wall rise. Respiratory: No respiratory distress, breath sounds are clear to auscultation bilaterally Cardiovascular: Regular rate and rhythm. No murmurs, clicks or gallops Extremities: Normal inspection, warm and well perfused. Normal cap refill. No peripheral edema Back: Normal inspection Neurological exam: Alert, oriented 3. Cranial nerves II through XII grossly intact. Normal gait Psychiatric: Normal affect, normal mood Skin: Warm and dry, intact, without masses, lesions or rashes. Normal color. - General Limitations: no limitations General appearance: alert, in no apparent distress Course Course Narrative: Patient arrives with family for evaluation of chest pain that woke her up. Her last stress test was two years ago. She has never had a heart catheterization. She does have history of high cholesterol and hypertension. She is not a smoker. Heart score is four. Troponin normal. EKG normal. Chest x-ray normal. We will admit for rule out. Vital Signs Temperature 97.5 F L 07/14/19 07:51 Pulse Rate 82 07/14/19 07:51 Respiratory Rate 16 07/14/19 07:51 Blood Pressure 148/81 07/14/19 07:51 O2 Sat by Pulse Oximetry 97 07/14/19 07:51 Temperature 97.5 F L 07/14/19 07:51 Pulse Rate 79 07/14/19 12:11 Respiratory Rate 18 07/14/19 12:11 Blood Pressure 128/73 07/14/19 12:11 O2 Sat by Pulse Oximetry 98 07/14/19 12:11 Oxygen Delivery Oxygen Delivery Room Air Chest Pain - Medical Records Medical records reviewed: Yes I reviewed the patient's medical records. - Lab Data Lab results reviewed: Yes I reviewed the patient's lab results. Result diagrams: 07/14/19 08:14 07/14/19 08:14 Lab Results 07/14/19 07/14/19 07/14/19 Range/Units 08:14 08:14 09:11 WBC 16.4 H (4.3-11.1) K/mcL RBC 5.19 H (3.82-4.97) M/mcL Hgb 14.9 (11.5-15.4) g/dL Hct 46.9 H (35.3-44.9) % MCV 90.4 (83.0-100.0) fL MCH 28.7 (28.0-33.3) pg MCHC 31.8 (31.6-35.5) g/dL RDW 13.8 (11.5-14.5) % Plt Count 281 (140-400) K/mcL MPV 10.7 (9.4-12.4) fL Immature Gran % 1.0 (0-4) % Seg Neutrophils % 87.5 % Lymphocytes % 5.4 % Monocytes % 5.1 % Eosinophils % 0.6 % Basophils % 0.4 % Neutrophils # 14.3 H (1.6-8.9) K/mcL Lymphocytes # 0.9 (0.6-4.6) K/mcL Monocytes # 0.8 (0.0-1.3) K/mcL Eosinophils # 0.1 (0.0-0.6) K/mcL Basophils # 0.1 (0.0-0.2) K/mcL Sodium 139 (136-145) mEq/L Potassium 4.3 (3.5-5.1) mEq/L Chloride 103 (98-107) mEq/L Carbon Dioxide 25 (23-29) mEq/L BUN 19 (8-23) mg/dL Creatinine 0.96 (0.60-1.20) mg/dL Est GFR ( Amer) > 60 (> 60) Est GFR (Non-Af Amer) 57 L (> 60) BUN/Creatinine Ratio 20 (6-26) Glucose 127 H (70-105) mg/dL Calculated Osmolality 292 (280-300) Calcium 9.5 (8.6-10.3) mg/dL Total Bilirubin 0.4 (0.3-1.0) mg/dL Direct Bilirubin 0.1 (0.0-0.2) mg/dL Indirect Bilirubin 0.3 (0.0-1.2) mg/dL AST 26 (13-39) Units/L ALT 41 (7-52) Units/L Alkaline Phosphatase 70 (34-104) Units/L Troponin I < 0.03 (< 0.04) ng/mL Serum Total Protein 7.1 (6.4-8.9) g/dL Albumin 4.7 (3.5-5.7) g/dL Globulin 2.4 (2.4-3.5) g/dL Albumin/Globulin Ratio 2.0 (1.1-2.2) Urine Color Yellow (Yellow) Urine Clarity Clear (Clear) Urine pH 5.5 (5.0-8.0) pH Units Ur Specific [place] 1.026 H (1.010-1.025) Urine Protein Negative (Neg-Trace) mg/dL Urine Glucose (UA) Normal (Normal) mg/dL Urine Ketones Negative (Negative) mg/dL Urine Blood Small H (Negative) Urine Nitrite Negative (Negative) Urine Bilirubin Negative (Negative) Urine Urobilinogen Normal (Normal) mg/dL Ur Leukocyte Esterase Negative (Negative) Urine Microscopic RBC 5-15 H (0-3) per hpf Urine Microscopic WBC 0-3 (0-3) per hpf Ur Squamous Epith Cells Many H (None-Few) per lpf Urine Bacteria None Seen (None-Few) per hpf Hyaline Casts None Seen (None-Few) per lpf Ur Culture Indicated? NO (NO) - Radiology Data Radiology results reviewed: Yes I reviewed the patient's radiology results. - EKG Data EKG attestation: Yes I reviewed and interpreted this EKG. EKG shows normal: sinus rhythm Rate: normal Rhythm: NSR [place]/QRS: normal Interpretation: normal EKG Heart Score - Score History: Moderately Suspicious EKG: Normal Age: Greater than 65 Risk Factors: 1-2 risk factors Troponin: Less than normal limit HEART Score Total: 4
[2019-07-14] MEDS ORDERED: Mag Hydrox/Al Hydrox/Simeth 30 ML UDC PO PRN (12:47)
[2019-07-14] MEDS ORDERED: MOM Conc 10 ML UD.LIQ PO PRN (12:47)
[2019-07-14] MEDS ORDERED: Naloxone 0.4 MG/ML INJ IVP PRN (12:47)
[2019-07-14] MEDS ORDERED: Ondansetron ODT 4 MG TAB.RAPDIS SL PRN (12:49)
--- NOTE | 2019-07-14 12:55 | Internal Med History&Physical ---
Date of Encounter: 07/14/19 Time of Encounter: 12:20 Internal Medicine - H&P: HPI Chief complaint: chest pressure Admitted From: Emergency Dept Plans for Post Hospital Care: Home History of present illness: Ms. Alcala is a 68 year old female presented to ED with episode of substernal chest pressure. Ms Alcala stated that she went to bed last night and awakened early this AM with substernal chest pressure. Flatgap like fist in her chest. No dyspnea. No radiation. No abd pain. Slight nausea and had "hot flash" in waiting room area. Symptoms gone now. No recent illness. No fever or chills. No GI issues. Still has gallbladder. At the present time she feels well. She is very active at home. Has a prior hx of GERD that she controls symptomatically but she says this felt different. Also has hx of irritable bowel. Past Med Surg Social Fam HX - Past Medical History Medical history: GERD, hyperlipidemia Additional medical history: IBS Psychiatric history: no psych history - Past Surgical History Surgical History: cataract Additional surgical history: tubal - Social History Smoking Status: Never smoker Smokeless Tobacco Status: No Alcohol use: none Drug use: none - Family History Father Living Status: Hx Family Cardiac Disorders: Yes ([place]) Brother Living Status: Still Living Hx Family Cardiac Disorders: Yes (AAA) Internal Medicine - H&P: Meds Dicyclomine HCl [Bentyl] 20 mg PO DAILY PRN 09/28/16 [History] Pantoprazole Sodium [Protonix] 20 mg PO DAILY 09/28/16 [History] Aspirin Enteric Coated [Aspirin EC] 81 mg PO DAILY 09/27/17 [History] Cholecalciferol (Vitamin D3) [Vitamin D3] 5,000 unit PO DAILY 09/27/17 [History] Famotidine [Pepcid] 40 mg PO DAILY 03/16/19 [History] Fenofibrate Nanocrystallized [Fenofibrate] 160 mg PO DAILY 03/16/19 [History] Ondansetron ODT [Zofran ODT] 4 mg SL Q6HR PRN #12 tab.rapdis 03/16/19 [Rx] Rosuvastatin Calcium [Crestor] 5 mg PO DAILY 03/16/19 [History] Allergy/AdvReac Type Severity Reaction Status Date / Time acetaminophen [From Percocet] Allergy Vomiting Verified 09/27/17 12:10 azithromycin Allergy Rash Verified 09/27/17 12:10 [From Zithromax Z-Chilo] cefdinir [From Omnicef] Allergy Hives Verified 09/27/17 12:10 hydrocodone [From Vicodin] Allergy Vomiting Verified 09/27/17 12:10 hydromorphone [From Dilaudid] Allergy Vomiting Verified 09/27/17 12:10 oxycodone [From Percocet] Allergy Vomiting Verified 09/27/17 12:10 promethazine [From Phenergan] Allergy Vomiting Verified 09/27/17 12:10 Nkwezws-Xkb-Nur Reductase Allergy Muscle Pain Verified 09/27/17 12:10 Inhibitor [Statins] Sulfa (Sulfonamide Allergy Hives Verified 09/27/17 12:10 Antibiotics) All Systems PM: A 10-system review of systems was performed and is negative for pertinent findings except as documented above in the HPI. - Constitutional Constitutional: no fatigue, no lethargy - EENT Eyes: no change in vision, no loss of vision Ears: no decreased hearing Nose, mouth and throat: no dry mouth, no mouth pain, no sinus pain - Cardiovascular Cardiovascular ROS IM: chest pain, no dyspnea, no dyspnea on exertion, no lightheadedness, no orthopnea, no palpitations, no paroxysmal nocturnal dyspnea - Respiratory Respiratory: no cough, no hemoptysis, no dyspnea on exertion, no wheezing - Gastrointestinal Gastrointestinal: no abdominal pain, no diarrhea, no nausea, no vomiting - Genitourinary Genitourinary: no difficulty urinating, no dysuria, no urinary frequency - Musculoskeletal Musculoskeletal ROS IM: no arthralgias, no myalgias - Integumentary Integumentary IM: no rash - Neurological Neurological ROS: no convulsions, no numbness - Endocrine Endocrine IM: no excessive sweating - Hematologic/Lymphatic Hematologic/Lymphatic: no easy bleeding - Allergic/Immunologic Allergic/Immunologic: no seasonal rhinorrhea - Constitutional Vitals: Temp Pulse Resp BP Pulse Ox 97.5 F L 79 18 128/73 98 07/14/19 07:51 07/14/19 12:11 07/14/19 12:11 07/14/19 12:11 07/14/19 12:11 General appearance: Present: A&O X 3, pleasant, answers questions appropriately Exam: See below - Head Head exam: Present: atraumatic, normocephalic - Eye Eye exam: Present: EOMI, conjuntiva pink - ENT ENT exam: Present: mucous membranes moist - Neck Neck exam general surgery: Present: normal inspection, supple. Absent: nuchal rigidity - Respiratory Respiratory exam: Present: CTAB. Absent: rales, rhonchi, wheezes - Cardiovascular Cardiovascular exam: Present: RRR. Absent: systolic murmur, tachycardia - GI/Abdominal GI/Abdominal exam: Present: normal bowel sounds, soft. Absent: mass, tenderness - Extremities Exam Extremities exam: Present: warm. Absent: tenderness - Neurological Exam Neurological exam: Present: alert, oriented X3, no focal deficits - Psychiatric Psychiatric exam: Present: normal affect, normal mood - Skin Skin exam: Present: dry, warm. Absent: rash Internal Med - H&P Results - Labs CBC & Chem 7: 07/14/19 08:14 07/14/19 08:14 Labs: Short CBC 07/14/19 Range/Units 08:14 WBC 16.4 H (4.3-11.1) K/mcL Hgb 14.9 (11.5-15.4) g/dL Hct 46.9 H (35.3-44.9) % Plt Count 281 (140-400) K/mcL Neutrophils # 14.3 H (1.6-8.9) K/mcL BMP 07/14/19 08:14 Sodium 139 Potassium 4.3 Chloride 103 Carbon Dioxide 25 BUN 19 Creatinine 0.96 Glucose 127 H Calcium 9.5 Cardiac Enzymes 07/14/19 Range/Units 08:14 Troponin I < 0.03 (< 0.04) ng/mL Liver Function 07/14/19 Range/Units 08:14 Total Bilirubin 0.4 (0.3-1.0) mg/dL Direct Bilirubin 0.1 (0.0-0.2) mg/dL AST 26 (13-39) Units/L ALT 41 (7-52) Units/L Alkaline Phosphatase 70 (34-104) Units/L Albumin 4.7 (3.5-5.7) g/dL Urine 07/14/19 Range/Units 09:11 Urine Color Yellow (Yellow) Urine Clarity Clear (Clear) Urine pH 5.5 (5.0-8.0) pH Units Ur Specific [place] 1.026 H (1.010-1.025) Urine Protein Negative (Neg-Trace) mg/dL Urine Glucose (UA) Normal (Normal) mg/dL - Impressions ITS Impressions Chest X-Ray 07/14/19 10:18 IMPRESSION: No acute findings D/ / Donna Maher MD / Donna Maher MD Interpreting Provider: Donna Maher MD - Assessment and Plan (1) Chest pain Current Visit: Yes Status: Suspected Assessment and plan: Pt presented to ED with acute substernal chest pain. Resolved on its own. Place in observation. Echo, serial troponin, stress test in AM. Lipid profile. Qualifiers: Chest pain type: chest pain due to myocardial ischemia Qualified Code(s): I20.0 - Unstable angina (2) GERD (gastroesophageal reflux disease) Current Visit: Yes Status: Chronic Assessment and plan: Continue home meds. Qualifiers: Esophagitis presence: esophagitis presence not specified Qualified Code(s): K21.9 - Gastro-esophageal reflux disease without esophagitis (3) Irritable bowel syndrome Current Visit: Yes Status: Chronic Qualifiers: Irritable bowel syndrome type: unspecified Qualified Code(s): K58.9 - Irritable bowel syndrome without diarrhea - Time Spent With Patient Total time spent is greater than 50% in coordination of care (as documented) at patient's floor/unit and/or counseling patient:
[2019-07-15 01:34] LABS: Basophils % 0.5 %; Eosinophils % 0.2 %; Hematocrit 42.6 % (35.3-44.9); Hematocrit 42.8 % (35.3-44.9); Hemoglobin 13.6 g/dL (11.5-15.4); Hemoglobin 13.8 g/dL (11.5-15.4); Immature Granulocytes % 0.7 % (0-4); Lymphocytes # 0.8 K/mcL (0.6-4.6); Lymphocytes % 9.7 %; Mean Corpuscular HGB Conc 31.9 g/dL (31.6-35.5); Mean Corpuscular HGB Conc 32.2 g/dL (31.6-35.5); Mean Corpuscular Hemoglobin 28.3 pg (28.0-33.3); Mean Corpuscular Hemoglobin 28.6 pg (28.0-33.3); Mean Corpuscular Volume 87.9 fL (83.0-100.0); Mean Corpuscular Volume 89.7 fL (83.0-100.0); Mean Platelet Volume 11.1 fL (9.4-12.4); Mean Platelet Volume 11.5 fL (9.4-12.4); Monocytes # 0.6 K/mcL (0.0-1.3); Monocytes % 6.9 %; Neutrophils # 6.9 K/mcL (1.6-8.9); Platelet Count 227 K/mcL (140-400); Platelet Count 229 K/mcL (140-400); Red Blood Count 4.75 M/mcL (3.82-4.97); Red Blood Count 4.87 M/mcL (3.82-4.97); White Blood Count 8.4 K/mcL (4.3-11.1); White Blood Count 8.6 K/mcL (4.3-11.1)
[2019-07-15 01:41] LABS: INR 1.1; Prothrombin Time 12.1 Seconds (9.4-12.1)
[2019-07-15 01:54] LABS: Alanine Aminotransferase 46 Units/L (7-52); Albumin 4.3 g/dL (3.5-5.7); Albumin/Globulin Ratio 1.9 (1.1-2.2); Alkaline Phosphatase 64 Units/L (34-104); Aspartate Amino Transferase 31 Units/L (13-39); BUN/Creatinine Ratio 23 (6-26); Bilirubin,Total 0.4 mg/dL (0.3-1.0); Blood Urea Nitrogen 18 mg/dL (8-23); Calcium 9.3 mg/dL (8.6-10.3); Carbon Dioxide 26 mEq/L (23-29); Chloride 102 mEq/L (98-107); Chol/HDL Ratio 4.5 (0-4.9); Cholesterol 196 mg/dL (< 200); Globulin 2.3 g/dL (2.4-3.5); Glucose 117 mg/dL (70-105); HDL Cholesterol 44 mg/dL (40-59); LDL Cholesterol,Calculated 124 mg/dL (0-99); Osmolality,Calculated 287 (280-300); Potassium 3.3 mEq/L (3.5-5.1); Sodium 137 mEq/L (136-145); Total Protein 6.6 g/dL (6.4-8.9); Triglycerides 138 mg/dL (< 150); eGFR For African Americans > 60 (> 60); eGFR For Non-African Americans > 60 (> 60)
[2019-07-15] MEDS ORDERED: Regadenoson 0.4 MG/5 ML SYRINGE IVP ONE (08:00)
[2019-07-15] MEDS ORDERED: Aspirin Enteric Coated 81 MG Tablet PO SCH (09:00)
[2019-07-15] MEDS ORDERED: Famotidine 20 MG TABLET PO SCH (09:00)
[2019-07-15] MEDS ORDERED: Fenofibrate 54 MG TABLET PO SCH (09:00)
[2019-07-15 11:34] VITALS: BP 131/71
--- NOTE | 2019-07-15 12:08 | Discharge Summary ---
- NOTES TO OUTPATIENT PROVIDER Notes to Outpatient Provider: f/u with PCP in one week. f/u with Cardiology in 2-4 weeks. Date of Encounter: 07/15/19 Time of Encounter: 12:06 - Discharge Diagnosis (1) Chest pain Priority: Primary Status: Acute Qualifiers: Chest pain type: chest pain due to myocardial ischemia Qualified Code(s): I20.0 - Unstable angina (2) GERD (gastroesophageal reflux disease) Priority: Secondary Status: Chronic Qualifiers: Esophagitis presence: esophagitis presence not specified Qualified Code(s): K21.9 - Gastro-esophageal reflux disease without esophagitis (3) Irritable bowel syndrome Priority: Secondary Status: Chronic Qualifiers: Irritable bowel syndrome type: unspecified Qualified Code(s): K58.9 - Irritable bowel syndrome without diarrhea Hospital course: Ms. Alcala is a 68 year old female with known past medical history of hype rtension, hyperlipidemia and GERD pt presented to ED with episode of substernal chest pressure. She was admitted in the hospital and placed her on manager cardiac. Her serial troponin came back as negative. Her EKG did not show any acute ischemic changes. Since patient is high risk for ACS she did go for nuclear stress test which came back as negative for ischemia/infarction. So will discharge her home in a stable condition today. I did recommended her to follow up with cardiology if her chest pain recurs. - Time Spent with Patient Total time spent providing and/or coordinating discharge services: - Discharge Medications Prescriptions: Continued Pantoprazole Sodium [Protonix] 20 mg PO DAILY Aspirin Enteric Coated [Aspirin EC] 81 mg PO Q72H Cholecalciferol (Vitamin D3) [Vitamin D3] 5,000 unit PO DAILY Rosuvastatin Calcium [Crestor] 5 mg PO Q48H Fenofibrate Nanocrystallized [Fenofibrate] 160 mg PO DAILY Famotidine [Pepcid] 40 mg PO DAILY PRN PRN Reason: Indigestion Dicyclomine Hcl [Bentyl] 20 mg PO QID PRN PRN Reason: IBS Home Medications: Pantoprazole Sodium [Protonix] 20 mg PO DAILY 09/28/16 [History] Aspirin Enteric Coated [Aspirin EC] 81 mg PO Q72H 09/27/17 [History] Cholecalciferol (Vitamin D3) [Vitamin D3] 5,000 unit PO DAILY 09/27/17 [History] Famotidine [Pepcid] 40 mg PO DAILY PRN 03/16/19 [History] Fenofibrate Nanocrystallized [Fenofibrate] 160 mg PO DAILY 03/16/19 [History] Rosuvastatin Calcium [Crestor] 5 mg PO Q48H 03/16/19 [History] Dicyclomine Hcl [Bentyl] 20 mg PO QID PRN 07/14/19 [History] Allergies/Adverse Reactions: Allergy/AdvReac Type Severity Reaction Status Date / Time acetaminophen [From Percocet] Allergy Vomiting Verified 09/27/17 12:10 azithromycin Allergy Rash Verified 09/27/17 12:10 [From Zithromax Z-Chilo] cefdinir [From Omnicef] Allergy Hives Verified 09/27/17 12:10 hydrocodone [From Vicodin] Allergy Vomiting Verified 09/27/17 12:10 hydromorphone [From Dilaudid] Allergy Vomiting Verified 09/27/17 12:10 oxycodone [From Percocet] Allergy Vomiting Verified 09/27/17 12:10 promethazine [From Phenergan] Allergy Vomiting Verified 09/27/17 12:10 Jbgyosn-Onl-Esc Reductase Allergy Muscle Pain Verified 09/27/17 12:10 Inhibitor [Statins] Sulfa (Sulfonamide Allergy Hives Verified 09/27/17 12:10 Antibiotics) Date of admission: 07/14/19 12:45 Primary care physician: Haseeb Franco MD - Constitutional Vitals: Temp Pulse Resp BP Pulse Ox 98.4 F 74 17 131/71 98 07/15/19 11:33 07/15/19 11:33 07/15/19 11:33 07/15/19 11:33 07/15/19 11:33 General appearance: Present: A&O X 3, pleasant, answers questions appropriately Exam: Gen: Alert, awake, Oriented to time,place and person Chest: Diminished breath sounds B/L, No wheezing, No crackles, No rales Heart: S1S2+ RRR No murmurs Abd: Soft, NT, BS +, No organomegaly Ext: No edema, pulses are palpable, No calf tenderness Neuro : No acute focal neuro deficits noticed Skin: No rash. - Patient Status Disposition: Home, Self-Care Condition: Good Overall status at discharge: patient is back to baseline - Discharge Instructions Follow Up With: Haseeb Franco MD [Primary Care Provider] - Gonsalo Telles DO [Partnered Physician] - - Diet and Activity Activity: increase activity as tolerated Diet: low salt diet
--- NOTE | 2019-07-16 07:33 | Electrocardiograph Report ---
[facility] Test Date: 2019-07-14 Pat Name: Georgia Alcala Department: [id number] Room: 3B23 Gender: F [employer]ar [employer]ler: : [id number] Requested By: Roz Bustamante Order Number: [id number] Reading MD: Souleymane Zuñiga Measurements Intervals [place] Rate: 72 P: 29 WI: 142 QRS: -13 QRSD: 83 T: 33 QT: 408 QTc: 447 Interpretive Statements Sinus rhythm Low voltage, precordial leads Electronically Signed On 07-16-2019 6:49:37 EDT by Souleymane Zuñiga
== END 2019-07-15 12:30 | disposition home or self-care (01) ==
LOC: EMEROOARM 07:45 → 3BNU 07:45 → SUATTDRO 12:45 → 3BNU 13:35
PROVIDERS: ADMIT Internal Medicine; ATTEND Family Medicine